=== PATIENT | male | born 1985 | race Two or more races ===

== ENCOUNTER 2020-04-30 07:46 | Emergency (ER) | payer MEDICAID ==
[~2020-04-30] VITALS: Ht 175.3 cm; Wt 75.6 kg
[2020-04-30 08:04] VITALS: BP 152/98
--- NOTE | 2020-04-30 08:06 | PHYS DOC ---
General Adult EDM: Chief Complaint: BACK PAIN OR INJURY HPI: HPI: Patient is a 34 yo M presenting with acute left-sided back pain after an injury at work yesterday. Patient also has a "puncture wound" on his left hand which he also sustained at work yesterday. Patient describes his back pain as deep and dull and rates his pain at a 4 out of 10, patient says it is worse with twisting movements or bending over, better with rest. Patient denies any numbness, weakness, radiating pain down the leg, subjective fever, chills. In regards to the puncture wound on his left hand, the patient was lifting a wood pallet yesterday where he gripped a small nail that punctured his glove and ent ered his hand. Patient states the bleeding was minimal, and has only experienced minimal swelling in that area. Patient has not had a tetanus shot in over 5 years. Review of Systems: Review of Systems: Constitutional: Denies fever or chills Eyes: Denies redness or eye pain HENT: Denies nasal congestion or sore throat Respiratory: Denies cough or shortness of breath Cardiovascular: Denies chest pain or palpitations GI: Denies abdominal pain, nausea, or vomiting : Denies dysuria or hematuria Musculoskeletal: Endorses back pain or joint pain Integument: Denies rash or skin lesions Neurologic: Denies headache, focal weakness or sensory changes Complete systems were reviewed and found to be within normal limits, except as documented in this note. Physical Exam: PE: Constitutional: Well developed, well nourished, no acute distress, non-toxic appearance HENT: Normocephalic, atraumatic Eyes: PERRL, EOMI, conjunctiva normal, no discharge Neck: Normal range of motion, no tenderness, supple Lungs & Thorax: Bilateral breath sounds clear to auscultation, no wheezing Abdomen: Soft, no tenderness Skin: Warm, dry, no erythema, no rash Back: No bony tenderness midline and no step-offs noted, tenderness to palpation of left lumbar para spinal musculature from L2 through L5. Patient has reduced range of motion and lumbar spine, and guards himself during movements, negative straight leg raise test bilaterally Extremities: Patient has a extremely small pinpoint puncture wound on the palmar surface of the left hand below his third digit. Hand is not indurated, not erythematous, and patient has full range of motion sensation in that hand. Neurologic: Alert and oriented X 3, normal motor function, normal sensory function, no focal deficits noted Psychologic: Affect normal, judgment normal Course & Med Decision Making: Course & Med Decision Making Pertinent Labs and Imaging studies reviewed. (See chart for details) Patient is a 34-year-old male presenting with back pain and left hand puncture wound. Patient's back pain started acutely after lifting at work yesterday. Physical exam findings make bony injuries and radicular pain likely. Patient most likely has an acute lumbar para muscle strain associated spasms. Patient was advised to rest, take [id number] ibuprofen as directed and ice the area intermittently. Patient was given dexamethasone and orphenadrine for symptomatic relief. Patient did not request any work notes. Patient was advised to follow-up with primary care physician if back pain does not start improving 2 to 4 weeks. Patient's puncture wound showed no signs of active infection. The patient's lack of knowledge of his last tetanus shot, patient was provided Tdap in the ED. patient's wound was cleaned, antibiotic ointment was applied, and dressed. Patient stable for discharge with outpatient follow-up with PCP. Discussed findings and plan with patient, who acknowledges understanding and agreement. José Miguel Disclaimer: José Miguel Disclaimer: This electronic medical record was generated, in whole or in part, using a voice recognition dictation system. Departure Departure Impression: Primary Impression: Lumbar back sprain Qualified Codes: S33.5XXA - Sprain of ligaments of lumbar spine, initial encounter Additional Impression: Puncture wound of hand, left Qualified Codes: S61.432A - Puncture wound without foreign body of left hand, initial encounter Disposition: HOME, SELF-CARE Condition: STABLE Patient Instructions: Low Back Strain with [facility], Puncture Wound, [id number] Additional Instructions: ICE area 20 min on then leave off for next 20 mins. Use over the counter Tylenol and/or Ibuprofen for pain as needed. Scripts Orphenadrine Citrate (ORPHENADRINE CITRATE) 100 Mg Tablet.er 100 MG PO BID PRN for MUSCLE PAIN, #14 TAB Prov: DIEUDONNE BYERS DO 04/30/20 Justicifation of Admission Dx: Justifications for Admission: Justification of Admission Dx: N/A DIEUDONNE BYERS DO Apr 30, 2020 08:06
[2020-04-30] MEDS ORDERED: NEOMY/BACITR/POLYMYXIN OINT PACKET. TP ONE (08:15)
[2020-04-30] MEDS ORDERED: DEXAMETHASONE 4 MG TABLET PO ONE (08:15)
[2020-04-30] MEDS ORDERED: ORPHENADRINE CITRATE 60 MG/2 ML VIAL. IM ONE (08:15)
[2020-04-30] MEDS ORDERED: DIPH,PERTUSS(ACELL),TET VAC/PF 0.5 ML SYRINGE. VAX IM ONE (08:30)
[2020-04-30] MEDS ORDERED: ORPH100T PO (08:38)
== END 2020-04-30 09:00 | disposition home or self-care (01) ==
LOC: ER 07:46
DX: S33.5XXA Sprain of ligaments of lumbar spine, initial encounter (principal); S61.432A Puncture wound without foreign body of left hand, initial encounter; R50.9 Fever, unspecified; X50.9XXA Other and unspecified overexertion or strenuous movements or postures, initial encounter; Y93.89 Activity, other specified; Y92.89 Other specified places as the place of occurrence of the external cause; Y99.8 Other external cause status
CPT/HCPCS: 90471; 90715; 96372; 99284; J2360; 99283

== ENCOUNTER 2020-07-24 10:35 | Emergency (ER) | payer SELFPAY ==
[~2020-07-24] VITALS: Ht 175.3 cm; Wt 75.0 kg
[~2020-07-24 10:35] MED LIST: ORPH100T PO
[2020-07-24 11:00] VITALS: BP 170/89
[2020-07-24] MEDS ORDERED: AMOX1TAB61 PO (11:33)
--- NOTE | 2020-07-24 11:33 | ED.ADGEN ---
Past Medical History Past Medical History: No Pertinent History Past Surgical History: No Surgical History Smoking Status: Current Some Day Smoker Alcohol Use: Occasionally Drug Use: Marijuana General Adult EDM: Chief Complaint: ANIMAL BITE HPI: HPI: Patient is a 34 year old male who presents to the emergency department with complaints of dog bites to his bilateral hands. Patient states that he was hiking when a dog attacked his dog and bit him while trying to break them up. Patient reports that the dog's maintenance carpenter states that the dog's last rabies shot was 2 months ago. Pt complains of soreness to his left thumb, he denies any numbness, tingling, weakness, or decreased range of motion of the affected digits. He currently rates his pain a 4 out of 10 on the pain scale, he denies any alleviating or exacerbating factors. He reports his last tetanus shot was less than 5 years ago. Review of Systems: Review of Systems: Complete ROS is negative unless otherwise noted in HPI. Allergies: Allergies: Allergies Coded Allergies Type Severity Reaction Last Updated Verified No Known Drug Allergies 04/30/20 No Physical Exam: PE: See Above Constitutional: Well developed, well nourished, no acute distress, non-toxic appearance. [] HENT: Normocephalic, atraumatic, bilateral external ears normal, nose normal. [] Eyes: PERRLA, EOMI, conjunctiva normal, no discharge. [] Neck: Normal range of motion, no stridor. [] Cardiovascular:Heart rate regular rhythm Lungs & Thorax: Respirations even and unlabored, no retractions, no respiratory distress Skin: Warm, dry, no erythema, no rash; superficial bite wounds to bilateral thumbs, no visible foreign body, no active bleeding. [] Extremities: Bilateral thumbs: Full extension and flexion, no bony tenderness, no crepitus, no cyanosis, ROM intact, no edema. [] Neurologic: Alert and oriented X 3, no focal deficits noted. [] Psychologic: Affect normal, judgement normal, mood normal. [] Current Patient Data: Vital Signs: Vital Signs Date Time Temp Pulse Resp B/P (MAP) Pulse Ox O2 Delivery O2 Flow Rate FiO2 07/24/20 11:00 98.8 60 15 170/89 (116) 99 Room Air 98.8 EKG: EKG: [] Heart Score: Risk Factors: Risk Factors: DM, Current or recent (<one month) smoker, HTN, HLP, family history of CAD, obesity. Risk Scores: Score 0 - 3: 2.5% MACE over next 6 weeks - Discharge Home Score 4 - 6: 20.3% MACE over next 6 weeks - Admit for Clinical Observation Score 7 - 10: 72.7% MACE over next 6 weeks - Early Invasive Strategies Radiology/Procedures: Radiology/Procedures: [] Course & Med Decision Making: Course & Med Decision Making Pertinent Labs and Imaging studies reviewed. (See chart for details) [] Dragon Disclaimer: Dragon Disclaimer: This electronic medical record was generated, in whole or in part, using a voice recognition dictation system. Departure Departure Impression: Primary Impression: Dog bite of hand Additional Impression: Dog bite of hand without complication Disposition: 01 DC HOME SELF CARE/HOMELESS Condition: STABLE Referrals: NO PCP (PCP) Patient Instructions: Animal Bite, Jece-im-Serm Additional Instructions: Fill the prescription and take it as directed. Keep the affected area clean and dry. You may take Tylenol or ibuprofen as needed for pain. Change the dressing twice a day and apply antibiotic ointment to the area. Follow-up with your primary care doctor in 1 to 2 days for wound recheck, return to the ER if you develop signs of infection including: redness, warmth, drainage, or a fever. Scripts Amoxicillin/Potassium Clav (AUGMENTIN 875-125 TABLET) 1 Each Tablet 1 TAB PO BID for 7 Days, #14 TAB 0 Refills Prov: [place] ASIF APRN 07/24/20 Problem Qualifiers Primary Impression: Dog bite of hand Encounter type: initial encounter Laterality: right Qualified Codes: S61.451A - Open bite of right hand, initial encounter; W54.0XXA - Bitten by dog, initial encounter Additional Impression: Dog bite of hand without complication Encounter type: initial encounter Laterality: left Qualified Codes: S61.452A - Open bite of left hand, initial encounter; W54.0XXA - Bitten by dog, initial encounter 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
== END 2020-07-24 11:40 | disposition home or self-care (01) ==
LOC: ER 10:35
DX: S61.452A Open bite of left hand, initial encounter (principal); S61.451A Open bite of right hand, initial encounter; F17.200 Nicotine dependence, unspecified, uncomplicated; W54.0XXA Bitten by dog, initial encounter; Y93.89 Activity, other specified; Y92.89 Other specified places as the place of occurrence of the external cause; Y99.8 Other external cause status
CPT/HCPCS: 99283

== ENCOUNTER 2021-12-27 20:39 | Emergency (ER) | payer SELFPAY ==
[~2021-12-27] VITALS: Ht 177.8 cm; Wt 98.7 kg
[~2021-12-27 20:39] MED LIST changes: +AMOX1TAB61 PO
[2021-12-27 21:00] VITALS: BP 158/99
--- NOTE | 2021-12-27 21:26 | PHYS DOC ---
Past Medical History Past Medical History: No Pertinent History Past Surgical History: No Surgical History Smoking Status: Current Some Day Smoker Alcohol Use: Occasionally Drug Use: Marijuana General Adult EDM: Chief Complaint: LACERATION/AVULSION HPI: HPI: Patient is a 36 year old male who presents to the ED today with left middle finger laceration that occurred prior to coming to the ED. Patient accidentally cut himself with a pocket knife. Patient is right-handed. Current use of methamphetamine. Review of Systems: Review of Systems: Constitutional: Denies fever or chills. [] Musculoskeletal: Denies back pain or joint pain. [] Integument: Reports left middle finger laceration Neurologic: Denies headache, focal weakness or sensory changes. [] Psychiatric: Denies depression or anxiety. [] Heart Score: C/O Chest Pain: N/A Risk Factors: Risk Factors: DM, Current or recent (<one month) smoker, HTN, HLP, family history of CAD, obesity. Risk Scores: Score 0 - 3: 2.5% MACE over next 6 weeks - Discharge Home Score 4 - 6: 20.3% MACE over next 6 weeks - Admit for Clinical Observation Score 7 - 10: 72.7% MACE over next 6 weeks - Early Invasive Strategies Current Medications: Current Medications Medications (Trade) Dose Ordered Sig/Edgar Start Time Stop Time Status Last Admin Dose Admin Diphtheria/ Tetanus/Acell Pertussis (Boostrix) 0.5 ml ONCE ONCE 12/27/21 21:30 12/27/21 21:31 UNV Allergies: Allergies: Allergies Coded Allergies Type Severity Reaction Last Updated Verified No Known Drug Allergies 04/30/20 No Physical Exam: PE: Constitutional: Well developed, well nourished, no acute distress, non-toxic appearance. [][] Skin: Left middle fingertip with a superficial skin avulsion 0.2 x 0.2 cm, there is no obvious tendon involvement. Range of motion is intact to the left middle finger, adequate sensation to the left middle finger. +2 left radial pulse. Cap refill less than 2 seconds in left middle finger Back: No tenderness, no CVA tenderness. [] Extremities: No tenderness, no cyanosis, no clubbing, ROM intact, no edema. [] Neurologic: Alert and oriented X 3, normal motor function, normal sensory function, no focal deficits noted. [] Psychologic: Flat affect, fidgeting around, appears intoxicated or on drugs Current Patient Data: Vital Signs: Vital Signs Date Time Temp Pulse Resp B/P (MAP) Pulse Ox O2 Delivery O2 Flow Rate FiO2 12/27/21 21:00 98.2 91 18 158/99 (118) 98 Room Air 98.2 EKG: EKG: [] Radiology/Procedures: Radiology/Procedures: [] Course & Med Decision Making: Course & Med Decision Making Pertinent Labs and Imaging studies reviewed. (See chart for details) This a 36-year-old male patient presenting with left middle finger laceration. Laceration is very superficial. Tetanus was ordered. Patient appears intoxicated/on drugs. He refused to wait for his tetanus, he states he cannot s tand needles, he walked away Dragon Disclaimer: José Miguel Disclaimer: This electronic medical record was generated, in whole or in part, using a voice recognition dictation system. Departure Departure Impression: Primary Impression: Avulsion of skin of finger Qualified Codes: S61.209A - Unspecified open wound of unspecified finger without damage to nail, initial encounter Disposition: HOME / SELF CARE / HOMELESS Condition: STABLE Referrals: NO PCP (PCP) BETZY MADISON JOURNEYMAN PRESSMAN December 27, 2021 21:26
[2021-12-27] MEDS ORDERED: DIPHTH,PERTUSS(ACELL),TET TOX 0.5 ML DISP.SYRIN. VAX IM ONE (22:00)
== END 2021-12-27 21:24 | disposition home or self-care (01) ==
LOC: ER 20:39
DX: S61.213A Laceration without foreign body of left middle finger without damage to nail, initial encounter (principal); F17.200 Nicotine dependence, unspecified, uncomplicated; W26.0XXA Contact with knife, initial encounter; Y93.89 Activity, other specified; Y92.89 Other specified places as the place of occurrence of the external cause; Y99.8 Other external cause status
CPT/HCPCS: 12001; 99282